=== PATIENT | female | born 1965 | race Caucasian/White ===

== ENCOUNTER 2021-03-26 15:30 | Emergency (ER) | payer OTHER, SELFPAY ==
[2021-03-26 15:34] VITALS: BP 123/61; PULSE 97; RESP 15; TEMP 36.7; O2SAT 100
[2021-03-26 15:48] LABS: Basophils Absolute Auto 0.1 K/mm3 (0.0-0.1); Basophils Percent Auto 0.9 % (0.2-1.2); Eosinophils Absolute Auto 0.1 K/mm3 (0-0.3); Eosinophils Percent Auto 2.1 % (0-4.4); Hematocrit 40.4 % (37.0-47.0); Hemoglobin 13.2 g/dL (12.0-15.0); Immature Granulocyte Absolute 0.01 K/mm3 (0.00-0.031); Immature Granulocyte Percent A 0.1 % (0-0.5); Lymphocytes Absolute Auto 2.43 K/mm3 (0.9-3.2); Lymphocytes Percent Auto 36.1 % (18.3-44.2); Mean Corpuscular HGB Conc 32.7 g/dl (32-36); Mean Corpuscular Hemoglobin 29.7 pg (26-34); Mean Platelet Volume 9.4 fl (7.4-10.4); Monocytes Absolute Auto 0.5 K/mm3 (0.1-0.6); Monocytes Percent Auto 7.3 % (2.6-8.5); Neutrophils Absolute Auto 3.6 K/mm3 (1.3-6.7); Neutrophils Percent Auto 53.5 % (45.5-73.1); Platelet Count Result 320 k/mm3 (150-375); Red Blood Count 4.44 M/mm3 (4.2-5.4); White Blood Count 6.7 K/mm3 (4.5-10.0)
[2021-03-26 16:00] LABS: Anion Gap 11 mmol/L (8-16); Blood Urea Nitrogen 14 mg/dL (7-17); Calcium 9.6 mg/dL (8.4-10.2); Carbon Dioxide 26 mmol/L (22-30); Chloride 105 mmol/L (98-107); Estimated CRCL calculation 53 ml/min; Estimated Glomerular Filt Rate > 60; Glucose 130 mg/dL (65-110); Potassium 3.9 mmol/L (3.4-5.0); Sodium 142 mmol/L (137-145)
[2021-03-26 16:18] LABS: Add Urine Microscopic? YES; Appearance Urine Clear (Clear); Bilirubin Urine Negative (Negative); Color Urine Yellow (Yellow); Glucose Urine UA Negative (Negative); Ketones Urine Trace mg/dL (Negative); Leukocyte Esterase Ur 3+ LEU/UL (Negative); Mucus Urine Rare /lpf; Nitrate Urine Negative (Negative); Protein Urine Negative (Negative); Specific Grav Ur 1.019 (1.001-1.035); Squamous Epithelial Cell Urine Few /hpf (Few); Urobilinogen Urine Negative mg/dL (<2.0)
--- NOTE | 2021-03-26 16:26 | ED.GENADULT ---
HPI - General Adult General Chief complaint: Back Pain/Injury Stated complaint: left flank pain Time Seen by Provider: 03/26/21 16:24 Source: patient Mode of arrival: ambulatory Limitations: no limitations History of Present Illness HPI narrative: This 55-year-old female is here for nagging left flank pain she states that she has had the pain for several weeks, it comes and goes and is usually well treated with Aleve. She denies any recent injury, no no new workout regimen, no new walking regimen. She does sleep on her left side primarily. She denies any urinary symptoms. Onset (ago): week(s) Relieving factors: medication Associated symptoms: denies other symptoms Related Data Allergies Allergy/AdvReac Type Severity Reaction Status Date / Time penicillin G AdvReac Unknown Unknown Verified 03/26/21 17:18 Review of Systems Review of Systems: All systems reviewed & are unremarkable except as noted in HPI and below [facility] Social History Social History (Updated 03/26/21 @ 16:37 by Lisbet Pastor PA-C) Smoking status: Never smoker Alcohol intake: never Substance use: never Exam Const: General: no acute distress and alert Orientation/consciousness: patient oriented x3 Eyes: Pupils: Equal, round and reactive pupils present Resp: Effort & Inspection: normal respiratory effort Cardio: Rate: regular rate Rhythm: regular rhythm : General: Yes no CVA tenderness Back/Spine/Pelvis: Thoracic/Lumbar Spine: thoracic and lumbar spine normal to inspection, thoraco-lumbar ROM normal and straight leg raise negative bilaterally Other: mild discomfort with deep palpation left lower back, no mass Skin: General skin exam: normal color Extrem: General: normal to inspection Psych: Mental Status: mental status grossly normal Course Course Emergency Course: Patient's pain seems responsive to anti-inflammatories, will continue to treat with same. Urine was suspicious for mild urinary tract infection will treat with nitrofurontin. Vital Signs Vital signs: Vital Signs Temperature 36.7 C 03/26/21 15:34 Pulse Rate 97 03/26/21 15:34 Respiratory Rate 15 03/26/21 15:34 Blood Pressure 123/61 03/26/21 15:34 Pulse Oximetry 100 03/26/21 15:34 Temperature 36.7 C 03/26/21 15:34 Pulse Rate 97 03/26/21 15:34 Respiratory Rate 15 03/26/21 15:34 Blood Pressure 123/61 03/26/21 15:34 Pulse Oximetry 100 03/26/21 15:34 Medical Decision Making Vital Signs Vital Signs: Vital Signs Temperature 36.7 C 03/26/21 15:34 Pulse Rate 97 03/26/21 15:34 Respiratory Rate 15 03/26/21 15:34 Blood Pressure 123/61 03/26/21 15:34 Pulse Oximetry 100 03/26/21 15:34 Temperature 36.7 C 03/26/21 15:34 Pulse Rate 97 03/26/21 15:34 Respiratory Rate 15 03/26/21 15:34 Blood Pressure 123/61 03/26/21 15:34 Pulse Oximetry 100 03/26/21 15:34 Lab Data Result diagrams: 03/26/21 15:38 03/26/21 15:38 Labs: Lab Results 03/26/21 03/26/21 03/26/21 Range/Units 15:38 15:38 15:57 WBC Pending RBC Pending Hgb Pending Hct Pending MCV Pending MCH Pending MCHC Pending RDW Pending Plt Count Pending MPV Pending Immature Gran % (Auto) Pending Neut % (Auto) Pending Lymph % (Auto) Pending Jerome % (Auto) Pending Eos % (Auto) Pending Baso % (Auto) Pending Lymph # (Auto) Pending Jerome # (Auto) Pending Eos # (Auto) Pending Baso # (Auto) Pending Abs Immat Gran (auto) Pending Absolute Neuts (auto) Pending Absolute Nucleated RBC Pending Nucleated RBC % Pending Sodium 142 (137-145) mmol/L Potassium 3.9 (3.4-5.0) mmol/L Chloride 105 (98-107) mmol/L Carbon Dioxide 26 (22-30) mmol/L Anion Gap 11 (8-16) mmol/L BUN 14 (7-17) mg/dL Creatinine 0.80 (0.7-1.0) mg/dL Estim Creat Clear Calc 53 ml/min Estimated GFR
[2021-03-26 16:45] LABS: Blood Urine Negative (Negative)
[2021-03-26 17:41] VITALS: BP 132/76; PULSE 76; RESP 18; O2SAT 99
== END 2021-03-26 17:43 | disposition home or self-care (01) ==
PROVIDERS: Emergency Provider Emergency Medicine; PCP Family Medicine
DX: N30.00 Acute cystitis without hematuria (principal); M54.50 Low back pain, unspecified
CPT/HCPCS: 36415; 80048; 81001; 81025; 85025; 87086; 99283

== ENCOUNTER 2023-05-21 13:12 | Emergency (ER) | payer OTHER, SELFPAY ==
[2023-05-21 13:47] VITALS: BP 130/65; PULSE 90; RESP 16; TEMP 36.2; O2SAT 100
--- NOTE | 2023-05-21 18:18 | PC.NURSE ---
pt up to desk stating she has things she has to do so she is just going to go home.
== END 2023-05-21 19:50 | disposition left against medical advice (07) ==
LOC: ANHED 18:25
PROVIDERS: PCP Family Medicine
DX: R52 Pain, unspecified (principal)
CPT/HCPCS: 99199

== ENCOUNTER 2023-05-22 09:36 | Emergency (ER) | payer OTHER, SELFPAY ==
[2023-05-22 09:48] VITALS: BP 137/66; PULSE 66; RESP 20; TEMP 36.4; O2SAT 100
--- NOTE | 2023-05-22 09:57 | ED.GENADULT ---
HPI - General Adult General Chief complaint: Abdominal Pain Stated complaint: Right side pain Time Seen by Provider: 05/22/23 10:03 Source: patient, RN notes reviewed and old records reviewed Mode of arrival: ambulatory Limitations: no limitations History of Present Illness HPI narrative: 57-year-old female presents to [facility] with complaints right hip pain that started over 1 month ago. Patient states pain is on and off, and worsens with certain movements. Patient has not tried anything for pain Onset (ago): month(s) (1) Location: lower extremity ( right hip) Radiation: non-radiation Pain Consistency: intermittent Related Data Allergies Allergy/AdvReac Type Severity Reaction Status Date / Time penicillin G AdvReac Unknown Unknown Verified 03/26/21 17:18 Review of Systems Review of Systems: All systems reviewed & are unremarkable except as noted in HPI and below Constitutional: Constitutional: Reports no additional constitutional complaints Eyes: Eyes: Reports no additional eye complaints ENT: Reports system reviewed and no additional complaints, except as documented Cardiovascular: Cardiovascular: Reports no additional cardiovascular complaints Respiratory: Respiratory: Reports no additional respiratory complaints Musculoskeletal: Musculoskeletal: Reports as per HPI, Denies abnormal gait, Denies back pain, Denies myalgias, Denies atrophy, Denies arthralgias, Denies joint swelling, Denies limited range of motion, Denies muscle weakness, Denies numbness and Denies radiating pain into limb Comments: right hip pain Neurologic: Reports system reviewed and no additional complaints, except as documented [facility] Social History Social History Smoking status: Never smoker Alcohol intake: never Substance use: never Comments At the time of my signature, I reviewed and agree with the nursing past medical, surgical, social, and family history. There is no relevant family history pertinent to the patient complaint. Exam Const: General: cooperative, healthy appearing, no acute distress and well nourished Nutritional Appearance: well nourished Orientation/consciousness: patient oriented x3 Limitations: no limitations HENMT: Head: normal to inspection and normocephalic Ears: external ears normal, TM's normal bilaterally, mastoids normal and Abnormal EAC present Face/Nose/Sinus: normal facial exam Face and sinus: normal facial exam Mouth: Yes Normal oral and palatal mucosa present, Yes oropharynx normal and Yes moist mucous membranes Throat: posterior oropharynx normal, tonsils normal, uvula midline and no uvular edema Eyes: General: appearance normal, both eyes and all related structures Sclera: sclerae normal Pupils: Equal, round and reactive pupils present Neck: Neck: normal visual inspection and full ROM Resp: Effort & Inspection: normal respiratory effort, able to speak in complete sentences, no audible wheezes, no cough, no respiratory distress and no retractions Cardio: Rate: regular rate Back/Spine/Pelvis: Back: No erythema, No warmth, No ecchymosis and back tenderness ( right lower) Cervical Spine: normal cervical lordosis Thoracic/Lumbar Spine: thoracic and lumbar spine normal to inspection, straight leg raise negative bilaterally, paraspinal muscle tenderness on the left, No thoracic spinal tenderness and No lumbar spinal tenderness Skin: General skin exam: normal color and no rashes or lesions noted Neuro: General: patient oriented x3 Cranial nerves: Yes Equal, round and reactive pupils present Extrem: Left lower extremity: normal to inspection, full ROM, normal capillary refill and hip/thigh Details: tenderness and normal ROM; no swelling, no abrasions, no ecchymosis and no unusual warmth; no cyanosis, no edema and joint enlargement noted Psych: Appearance: grossly normal Course Course Emergency Course: Some parts of this di
== END 2023-05-22 10:15 | disposition home or self-care (01) ==
PROVIDERS: Emergency Provider Registered Nurse; PCP Family Medicine
DX: S76.011A Strain of muscle, fascia and tendon of right hip, initial encounter (principal); X58.XXXA Exposure to other specified factors, initial encounter
CPT/HCPCS: 99213; G0463